=== PATIENT | male | born 1965 | race Caucasian/White ===

== ENCOUNTER 2016-04-22 19:31 | Emergency (ER) | payer MEDICAID ==
[~2016-04-22] VITALS: Ht 190.5 cm; Wt 86.2 kg
[2016-04-22 19:40] VITALS: BP 152/91; PULSE 80; RESP 16; TEMP 98.2; O2SAT 97
--- NOTE | 2016-04-22 19:40 | NUR ---
Patient to ER bed 3 for evaluation. Side rails up. Report given to MARCE Mendoza.
--- NOTE | 2016-04-22 19:45 | NUR ---
Dr Banuelos at bedside examining patient
--- NOTE | 2016-04-22 19:45 | NUR ---
Pt brought by self, A&Ox4, pt c/o pain and discomfort on R groin area, denies urinary symptoms, skin pink and warm,cap refill <3, VSS.
[2016-04-22] MEDS ORDERED: IBUPROFEN 800 MG TABLET PO ONE (20:15)
[2016-04-22 20:58] LABS: BILIRUBIN,URINE 1+ (NEGATIVE); BLOOD, URINE NEGATIVE (NEGATIVE); CLARITY/URINE CLEAR (CLEAR); COLOR,URINE AMBER (YELLOW); GLUCOSE,URINE NEGATIVE (NEGATIVE); KETONES,URINE NEGATIVE (NEGATIVE); LEUKOCYTE ESTERASE ,URINE NEGATIVE (NEGATIVE); NITRITE, URINE NEGATIVE (NEGATIVE); PROTEIN URINE TRACE (NEGATIVE)
[2016-04-22 21:18] LABS: RBC,URINE NONE SEEN /HPF (0-3); WBC,URINE 0-3 /HPF (0-3)
[2016-04-22 21:19] LABS: BACTERIA,URINE FEW /HPF (None Seen); MUCUS,URINE 3+ /LPF (None Seen)
--- NOTE | 2016-04-22 22:15 | NUR ---
Patient given written and verbal discharge instructions and verbalizes understanding. ER MD discussed with patient the results and treatment provided. Patient in stable condition. ID arm band removed. Rx of Wilson given. Patient educated on pain management and to follow up with PMD. Pain Scale 0/10. Opportunity for questions provided and answered.
[2016-04-22 22:22] VITALS: BP 148/91; PULSE 80; RESP 16; TEMP 98.2; O2SAT 97
== END 2016-04-22 22:22 | disposition home or self-care (01) ==
LOC: SED 19:31
DX: M54.41 Lumbago with sciatica, right side (principal); R03.0 Elevated blood-pressure reading, without diagnosis of hypertension; G43.909 Migraine, unspecified, not intractable, without status migrainosus
CPT/HCPCS: 72192-TC; 81000-TC; 99285

== ENCOUNTER 2016-10-11 12:47 | Emergency (ER) | payer MEDICAID ==
[~2016-10-11] VITALS: Ht 190.5 cm; Wt 86.2 kg
[2016-10-11 12:59] VITALS: BP_SYST 142
[2016-10-11] MEDS ORDERED: KETOROLAC TROMETHAMINE 30 MG VIAL IVP ONE (15:00)
[2016-10-11] MEDS ORDERED: CYCLOBENZAPRINE HCL 10 MG TABLET (FLEXERIL) PO ONE (15:00)
[2016-10-11 16:08] VITALS: BP_SYST 141
== END 2016-10-11 16:08 | disposition home or self-care (01) ==
LOC: SED 12:47
DX: M54.5 Low back pain (principal); F41.9 Anxiety disorder, unspecified; W11.XXXA Fall on and from ladder, initial encounter; Y93.89 Activity, other specified; Y92.89 Other specified places as the place of occurrence of the external cause; Y99.8 Other external cause status
CPT/HCPCS: 72072; 72100; 72220; 96372; 99284; J1885

== ENCOUNTER 2017-04-29 15:07 | Emergency (ER) | payer MEDICAID ==
[~2017-04-29] VITALS: Ht 190.5 cm; Wt 81.6 kg
[2017-04-29 15:07] VITALS: BP_SYST 138
--- NOTE | 2017-04-29 15:07 | NUR ---
BROUGHT BACK TO BED #4 AND TRIAGED. REPORT GIVEN TO DILMA
--- NOTE | 2017-04-29 15:08 | NUR ---
Pt states that he ran out of medical marijuana and can't afford a refill. Pt requests medication to help relieve his anxiety.
--- NOTE | 2017-04-29 15:08 | NUR ---
REPORT CHANGED TO ROSALIO
--- NOTE | 2017-04-29 15:10 | NUR ---
ER MARIA INES Avalos examining patient.
[2017-04-29 15:25] VITALS: BP_SYST 146
--- NOTE | 2017-04-29 15:25 | NUR ---
Patient given written and verbal discharge instructions and verbalizes understanding. ER MD discussed with patient the results and treatment provided. Patient in stable condition. ID arm band removed. Rx of Lorazepam given. Patient educated on pain management and to follow up with PMD. Pain Scale 0/10. Opportunity for questions provided and answered. Medication side effect fact sheet provided.
== END 2017-04-29 15:25 | disposition home or self-care (01) ==
LOC: SED 15:07
DX: F41.9 Anxiety disorder, unspecified (principal); R03.0 Elevated blood-pressure reading, without diagnosis of hypertension; Z76.0 Encounter for issue of repeat prescription
CPT/HCPCS: 99283

== ENCOUNTER 2017-09-07 09:22 | Emergency (ER) | payer MEDICAID, OTHER ==
[~2017-09-07] VITALS: Ht 190.5 cm; Wt 86.2 kg
[2017-09-07 09:22] VITALS: BP_SYST 151
[2017-09-07] MEDS ORDERED: KETOROLAC TROMETHAMINE 30 MG VIAL IM ONE (10:00)
[2017-09-07 10:58] VITALS: BP_SYST 142
== END 2017-09-07 10:58 | disposition home or self-care (01) ==
LOC: SED 09:22
DX: M16.12 Unilateral primary osteoarthritis, left hip (principal); F41.9 Anxiety disorder, unspecified
CPT/HCPCS: 73521; 96372; 99284; J1885

== ENCOUNTER 2017-11-08 13:13 | Inpatient (IN) | payer MEDICAID ==
[~2017-11-08] VITALS: Ht 190.5 cm; Wt 86.2 kg
[2017-11-08 13:13] VITALS: BP_SYST 143
[2017-11-08] MEDS ORDERED: ASPIRIN 81 MG TAB.CHEW PO ONE (13:45)
[2017-11-08] MEDS ORDERED: NITROGLYCERIN 1 INCH (GM) OINT. TP ONE (13:45)
[2017-11-08 14:09] LABS: BASOPHILS # (AUTO) 0.1 K/uL (0.0-0.2); BASOPHILS % (AUTO) 0.9 % (0.0-2.0); EOSINOPHILS # (AUTO) 0.2 K/uL (0.0-0.4); EOSINOPHILS % (AUTO) 2.3 % (0.0-4.0); HEMATOCRIT 40.4 % (36-54); HEMOGLOBIN 13.5 g/dL (14.0-18.0); LYMPHOCYTES # (AUTO) 1.3 K/uL (1.0-5.5); LYMPHOCYTES % (AUTO) 18.3 % (20.5-51.5); MEAN CORPUSCULAR HEMOGLOBIN 31 pg (27-31); MEAN CORPUSCULAR HGB CONC 34 % (32-36); MEAN CORPUSCULAR VOLUME 93 fL (79.0-98.0); MONOCYTES # (AUTO) 0.4 K/uL (0.0-1.0); MONOCYTES % (AUTO) 6.1 % (1.7-9.3); NEUTROPHILS # (AUTO) 4.9 K/uL (1.8-7.7); NEUTROPHILS % (AUTO) 72.4 % (40.0-70.0); PLATELET COUNT (AUTO) 267 K/uL (130-430); RED BLOOD CELL COUNT(AUTO) 4.32 MIL/uL (4.2-6.2); RED CELL DISTRIBUTION WIDTH 12.2 % (9.0-15.0); WHITE BLOOD COUNT (AUTO) 6.9 K/uL (4.8-10.8)
[2017-11-08 14:10] LABS: BILIRUBIN,URINE NEGATIVE (NEGATIVE); BLOOD, URINE NEGATIVE (NEGATIVE); CLARITY/URINE CLEAR (CLEAR); COLOR,URINE YELLOW (YELLOW); GLUCOSE,URINE NEGATIVE (NEGATIVE); KETONES,URINE NEGATIVE (NEGATIVE); LEUKOCYTE ESTERASE ,URINE NEGATIVE (NEGATIVE); NITRITE, URINE NEGATIVE (NEGATIVE); PROTEIN URINE NEGATIVE (NEGATIVE); UROBILINOGEN,URINE 0.2 (0.2-1.0)
[2017-11-08 14:13] LABS: CALCIUM 8.8 mg/dL (8.4-11.0); CREATININE 0.99 mg/dL (0.55-1.30); POTASSIUM 3.8 mmol/L (3.5-5.1)
[2017-11-08 14:15] LABS: INR 0.9 (0.80-1.20); PROTHROMBIN TIME 9.5 SECS (9.5-12.5)
[2017-11-08 14:19] LABS: ALBUMIN 3.4 g/dL (3.4-4.8); TOTAL BILIRUBIN 0.9 mg/dL (0.0-1.0)
[2017-11-08 16:14] VITALS: BP_SYST 139
[2017-11-08] MEDS ORDERED: ACETAMINOPHEN 650 MG/20.3 ML UDC PO PRN (17:15)
[2017-11-08] MEDS ORDERED: ONDANSETRON HCL 4 MG/2 ML VIAL IVP PRN (17:15)
[2017-11-08] MEDS ORDERED: MORPHINE 4 MG/ML INJ. SYRINGE IVP PRN (17:15)
[2017-11-08] MEDS: MORPHINE 2 MG/ML INJ. SYRINGE IVP PRN (17:46)
[2017-11-08 20:00] VITALS: BP_SYST 117
[2017-11-08] MEDS ORDERED: ZOLPIDEM TARTRATE 5 MG TABLET PO PRN (22:45)
[2017-11-09] VITALS: BP_SYST 118
[2017-11-09 06:55] LABS: ANION GAP 9 (5-15); CALCIUM 8.5 mg/dL (8.4-11.0); CHLORIDE 107 mmol/L (98-107); CREATININE 1.01 mg/dL (0.55-1.30); GLUCOSE 83 mg/dL (70-99); POTASSIUM 3.9 mmol/L (3.5-5.1); SODIUM SERUM 142 mmol/L (136-145); UREA NITROGEN, BLOOD 17 mg/dL (8-21)
[2017-11-09 07:09] LABS: ALANINE AMINOTRANSFERASE 22 U/L (12-78); ASPARTATE AMINOTRANSFERASE 19 U/L (10-37); LIPASE 164 U/L (73-393); THYROID STIMULATING HORMONE 2.44 uIu/mL (0.36-3.74)
[2017-11-09 07:15] LABS: GFR AFRICAN AMERICAN 99 mL/min (>90)
[2017-11-09 07:34] LABS: BASOPHILS # (AUTO) 0.1 K/uL (0.0-0.2); HEMATOCRIT 40.4 % (36-54); HEMOGLOBIN 13.2 g/dL (14.0-18.0); LYMPHOCYTES # (AUTO) 1.3 K/uL (1.0-5.5); MEAN CORPUSCULAR HEMOGLOBIN 31 pg (27-31); MEAN CORPUSCULAR HGB CONC 33 % (32-36); MEAN CORPUSCULAR VOLUME 94 fL (79.0-98.0); MONOCYTES # (AUTO) 0.5 K/uL (0.0-1.0); PLATELET COUNT (AUTO) 239 K/uL (130-430); RED BLOOD CELL COUNT(AUTO) 4.28 MIL/uL (4.2-6.2); RED CELL DISTRIBUTION WIDTH 12.2 % (9.0-15.0); WHITE BLOOD COUNT (AUTO) 6.9 K/uL (4.8-10.8)
[2017-11-09] MEDS: MORPHINE 2 MG/ML INJ. SYRINGE IVP PRN (07:35)
[2017-11-09 07:50] LABS: BASOPHILS % (AUTO) 0.8 % (0.0-2.0); EOSINOPHILS # (AUTO) 0.2 K/uL (0.0-0.4); EOSINOPHILS % (AUTO) 2.5 % (0.0-4.0); LYMPHOCYTES % (AUTO) 19.1 % (20.5-51.5); MONOCYTES % (AUTO) 7.5 % (1.7-9.3); NEUTROPHILS # (AUTO) 4.8 K/uL (1.8-7.7); NEUTROPHILS % (AUTO) 70.1 % (40.0-70.0)
[2017-11-09 08:00] VITALS: BP_SYST 135
[2017-11-09] MEDS ORDERED: IOHEXOL 350 mgI/mL, 150 ML INFUS..BTL IV ONE (08:25)
[2017-11-09] MEDS ORDERED: ASPIRIN 81 MG TABLET(ECOTRIN) PO SCH (09:00)
[2017-11-09 09:39] LABS: CHOLESTEROL 197 mg/dL (<200); HDL CHOLESTEROL 42 mg/dL (>45); LDL CHOLESTEROL 154 mg/dL (<100); TRIGLYCERIDES 67 mg/dL (30-150)
[2017-11-09 12:37] VITALS: BP_SYST 144
[2017-11-09 14:52] VITALS: BP_SYST 144
== END 2017-11-09 15:10 | disposition home or self-care (01) | DRG 203 ==
LOC: SED 13:13 → STU 15:47
PROVIDERS: ADMIT Internal Medicine; ATTEND Internal Medicine
DX: R07.89 Other chest pain (principal); D18.03 Hemangioma of intra-abdominal structures; E78.5 Hyperlipidemia, unspecified; I45.10 Unspecified right bundle-branch block; Z87.891 Personal history of nicotine dependence
CPT/HCPCS: 36415; 71045; 71275; 80053; 80061; 81003; 83690-TC; 83735-TC; 83880; 84443-TC; 84484; 85025; 85610-TC; 93005; 93306; 99285; J2270; J2405; Q9967

== ENCOUNTER 2017-12-12 17:44 | Emergency (ER) | payer MEDICAID ==
[~2017-12-12] VITALS: Ht 190.5 cm; Wt 90.7 kg
[2017-12-12 18:00] VITALS: BP_SYST 155
--- NOTE | 2017-12-12 20:10 | NUR ---
Patient to ER bed 8 for evaluation.
--- NOTE | 2017-12-12 20:15 | NUR ---
Patient to ER via triage for evaluation of abdominal pain, vomiting and headache. Patient is awake, alert and oriented in no acute distress, vital signs stable, respirations even and unlabored, skin warm and dry to touch. Skin warm and dry to touch. Awaiting evaluation by ER MD, will continue to observe and assess.
--- NOTE | 2017-12-12 20:25 | NUR ---
ER at bedside examining patient.
[2017-12-12] MEDS ORDERED: NACL 0.9% 1,000 ML IV ONE (20:45)
--- NOTE | 2017-12-12 20:55 | NUR ---
Patient to x-ray department for films in stable condition via wheelchair.
[2017-12-12 20:58] LABS: BASOPHILS # (AUTO) 0.1 K/uL (0.0-0.2); BASOPHILS % (AUTO) 1.5 % (0.0-2.0); EOSINOPHILS # (AUTO) 0.4 K/uL (0.0-0.4); EOSINOPHILS % (AUTO) 5.2 % (0.0-4.0); HEMATOCRIT 39.9 % (36-54); HEMOGLOBIN 13.2 g/dL (14.0-18.0); LYMPHOCYTES # (AUTO) 1.7 K/uL (1.0-5.5); LYMPHOCYTES % (AUTO) 20.2 % (20.5-51.5); MEAN CORPUSCULAR HEMOGLOBIN 31 pg (27-31); MEAN CORPUSCULAR HGB CONC 33 % (32-36); MEAN CORPUSCULAR VOLUME 93 fL (79.0-98.0); MONOCYTES # (AUTO) 0.7 K/uL (0.0-1.0); MONOCYTES % (AUTO) 8.2 % (1.7-9.3); NEUTROPHILS # (AUTO) 5.7 K/uL (1.8-7.7); NEUTROPHILS % (AUTO) 64.9 % (40.0-70.0); PLATELET COUNT (AUTO) 244 K/uL (130-430); RED BLOOD CELL COUNT(AUTO) 4.29 MIL/uL (4.2-6.2); WHITE BLOOD COUNT (AUTO) 8.6 K/uL (4.8-10.8)
--- NOTE | 2017-12-12 21:05 | NUR ---
Patient returned from x-ray in stable condition via wheelchair.
[2017-12-12 21:17] LABS: ANION GAP 6 (5-15); CALCIUM 8.8 mg/dL (8.4-11.0); CHLORIDE 107 mmol/L (98-107); CREATININE 1.13 mg/dL (0.55-1.30); GLUCOSE 85 mg/dL (70-99); POTASSIUM 4.2 mmol/L (3.5-5.1); SODIUM SERUM 143 mmol/L (136-145); UREA NITROGEN, BLOOD 14 mg/dL (8-21)
[2017-12-12 21:23] LABS: ALANINE AMINOTRANSFERASE 19 U/L (12-78); ALBUMIN 3.4 g/dL (3.4-4.8); ASPARTATE AMINOTRANSFERASE 19 U/L (10-37); TOTAL BILIRUBIN 0.3 mg/dL (0.0-1.0)
[2017-12-12 21:24] LABS: ALCOHOL, BLOOD < 3 mg/dL (<10); GFR AFRICAN AMERICAN 87 mL/min (>90)
[2017-12-12 21:25] LABS: ACETAMINOPHEN < 1 ug/mL (1-30)
[2017-12-12 21:37] LABS: BARBITURATE, URINE NEGATIVE (NEG <=200); BENZODIAZEPINE, URINE NEGATIVE (NEG <=150); CANNABINOID, URINE POSITIVE (NEG <=50); COCAINE, URINE NEGATIVE (NEG <=150); METHAMPHETAMINES SCREEN,URINE NEGATIVE (NEG <=500); OPIATE, URINE NEGATIVE (NEG <=100); PHENCYCLIDINE SCREEN,URINE NEGATIVE (NEG <=25); UR TRICYCLIC ANTIDEPRESSANTS NEGATIVE (NEG <=300); URINE AMPHETAMINE NEGATIVE (NEG <=500); URINE METHADONE NEGATIVE (NEG <=200); URINE OXYCODONE SCREEN NEGATIVE (NEG <=100); URINE PROPOXYPHENE SCREEN NEGATIVE (NEG <=300)
--- NOTE | 2017-12-12 22:00 | NUR ---
Patient resting quietly in no acute distress, IV fluids infusing without difficulty, no redness or swelling noted at site. Awaiting dispo.
--- NOTE | 2017-12-12 22:25 | NUR ---
Patient given written and verbal discharge instructions and verbalizes understanding. ER MD discussed with patient the results and treatment provided. Patient in stable condition. ID arm band removed. IV catheter removed intact and dressing applied, no active bleeding. Rx of Tramadol given. Patient educated on pain management and to follow up with PMD. Pain Scale 0/10 . Opportunity for questions provided and answered. Medication side effect fact sheet provided.
[2017-12-12 22:28] VITALS: BP_SYST 138
== END 2017-12-12 20:10 | disposition home or self-care (01) ==
LOC: SED 17:44
DX: R10.84 Generalized abdominal pain (principal); F41.9 Anxiety disorder, unspecified; R03.0 Elevated blood-pressure reading, without diagnosis of hypertension
CPT/HCPCS: 36415; 71045; 74021; 80053; 80307; 84484; 85025; 96360; 99285; G0480; G0481; G0482; J7030

== ENCOUNTER 2018-10-24 07:17 | Emergency (ER) | payer BC, MEDICAID ==
[~2018-10-24] VITALS: Ht 190.5 cm; Wt 90.7 kg
[2018-10-24 07:17] VITALS: BP_SYST 152
[2018-10-24 08:06] LABS: BASOPHILS % (AUTO) 0.7 % (0.0-2.0); EOSINOPHILS # (AUTO) 0.3 K/uL (0.0-0.4); EOSINOPHILS % (AUTO) 4.1 % (0.0-4.0); HEMATOCRIT 41.7 % (36-54); HEMOGLOBIN 14.1 g/dL (14.0-18.0); LYMPHOCYTES # (AUTO) 1.2 K/uL (1.0-5.5); LYMPHOCYTES % (AUTO) 20.1 % (20.5-51.5); MEAN CORPUSCULAR HEMOGLOBIN 32 pg (27-31); MEAN CORPUSCULAR HGB CONC 34 % (32-36); MEAN CORPUSCULAR VOLUME 94 fL (79.0-98.0); MONOCYTES # (AUTO) 0.6 K/uL (0.0-1.0); MONOCYTES % (AUTO) 9.7 % (1.7-9.3); NEUTROPHILS # (AUTO) 4.1 K/uL (1.8-7.7); NEUTROPHILS % (AUTO) 65.4 % (40.0-70.0); PLATELET COUNT (AUTO) 215 K/uL (130-430); RED BLOOD CELL COUNT(AUTO) 4.41 MIL/uL (4.2-6.2); RED CELL DISTRIBUTION WIDTH 13.5 % (9.0-15.0); WHITE BLOOD COUNT (AUTO) 6.2 K/uL (4.8-10.8)
[2018-10-24 08:10] LABS: CALCIUM 8.1 mg/dL (8.4-11.0); CREATININE 1.09 mg/dL (0.55-1.30); POTASSIUM 3.9 mmol/L (3.5-5.1)
[2018-10-24 08:16] LABS: ALBUMIN 3.2 g/dL (3.4-4.8); TOTAL BILIRUBIN 0.5 mg/dL (0.0-1.0)
[2018-10-24 09:51] VITALS: BP_SYST 142
== END 2018-10-24 09:52 | disposition home or self-care (01) ==
LOC: SED 07:17
DX: M54.12 Radiculopathy, cervical region (principal); F41.9 Anxiety disorder, unspecified; R03.0 Elevated blood-pressure reading, without diagnosis of hypertension
CPT/HCPCS: 36415; 70450-TC; 71045; 72125-TC; 80053; 82550-TC; 83605; 83880; 84484; 85025; 99284

== ENCOUNTER 2020-04-18 14:24 | Emergency (ER) | payer BC, MEDICAID ==
[~2020-04-18] VITALS: Ht 190.5 cm; Wt 86.2 kg
[2020-04-18 14:29] VITALS: BP_SYST 163
[2020-04-18 15:11] LABS: BASOPHILS % (AUTO) 0.4 % (0.0-2.0); HEMATOCRIT 42.7 % (36-54); HEMOGLOBIN 14.5 g/dL (14.0-18.0); LYMPHOCYTES # (AUTO) 0.9 K/uL (1.0-5.5); LYMPHOCYTES % (AUTO) 7.8 % (20.5-51.5); MEAN CORPUSCULAR HEMOGLOBIN 32 pg (27-31); MEAN CORPUSCULAR HGB CONC 34 % (32-36); MEAN CORPUSCULAR VOLUME 93 fL (79.0-98.0); MONOCYTES # (AUTO) 0.5 K/uL (0.0-1.0); MONOCYTES % (AUTO) 4.4 % (1.7-9.3); NEUTROPHILS # (AUTO) 10.3 K/uL (1.8-7.7); NEUTROPHILS % (AUTO) 87.4 % (40.0-70.0); PLATELET COUNT (AUTO) 270 K/uL (130-430); RED BLOOD CELL COUNT(AUTO) 4.62 MIL/uL (4.2-6.2); RED CELL DISTRIBUTION WIDTH 12.6 % (9.0-15.0); WHITE BLOOD COUNT (AUTO) 11.8 K/uL (4.8-10.8)
[2020-04-18 15:12] LABS: ANION GAP 12 (5-15); CALCIUM 8.6 mg/dL (8.4-11.0); CHLORIDE 98 mmol/L (98-107); CREATININE 0.97 mg/dL (0.55-1.30); GLUCOSE 125 mg/dL (70-99); POTASSIUM 3.6 mmol/L (3.5-5.1); SODIUM SERUM 135 mmol/L (136-145); UREA NITROGEN, BLOOD 12 mg/dL (8-21)
[2020-04-18 15:13] LABS: BILIRUBIN,URINE NEGATIVE (NEGATIVE); BLOOD, URINE NEGATIVE (NEGATIVE); COLOR,URINE YELLOW (YELLOW); GLUCOSE,URINE NEGATIVE (NEGATIVE); KETONES,URINE 2+ (NEGATIVE); LEUKOCYTE ESTERASE ,URINE NEGATIVE (NEGATIVE); NITRITE, URINE NEGATIVE (NEGATIVE); PH,URINE 6.5 (5.0-8.0); PROTEIN URINE TRACE (NEGATIVE)
[2020-04-18 15:14] LABS: GFR AFRICAN AMERICAN 103 mL/min (>90)
[2020-04-18 15:15] LABS: CLARITY/URINE SLIGHTLY HAZY (CLEAR)
[2020-04-18 15:21] LABS: ALANINE AMINOTRANSFERASE 21 U/L (12-78); ALBUMIN 3.8 g/dL (3.4-4.8); ASPARTATE AMINOTRANSFERASE 19 U/L (10-37); LIPASE 136 U/L (73-393); TOTAL BILIRUBIN 0.7 mg/dL (0.0-1.0)
[2020-04-18 15:40] VITALS: BP_SYST 163
[2020-04-18 16:22] LABS: RBC,URINE 0-3 /HPF (0-3)
[2020-04-18 16:23] LABS: BACTERIA,URINE FEW /HPF (None Seen); WBC,URINE NONE SEEN /HPF (0-3)
== END 2020-04-18 15:42 | disposition home or self-care (01) ==
LOC: SED 14:24
DX: R53.83 Other fatigue (principal); F41.9 Anxiety disorder, unspecified; Z20.822 Contact with and (suspected) exposure to COVID-19
CPT/HCPCS: 36415; 71045; 80053; 81000; 83690; 84443; 84484; 85025; 93005; 99285; C9803; U0003

== ENCOUNTER 2021-08-11 12:29 | Emergency (ER) | payer OTHER, MEDICAID ==
[~2021-08-11] VITALS: Ht 190.5 cm; Wt 81.6 kg
[2021-08-11 12:37] VITALS: BP_SYST 142
[2021-08-11] MEDS ORDERED: IBUP-1971 PO (14:08)
[2021-08-11] MEDS ORDERED: HYDR-3917 PO (14:08)
[2021-08-11 14:50] VITALS: BP_SYST 142
== END 2021-08-11 14:45 | disposition home or self-care (01) ==
LOC: SED 12:29
DX: S30.0XXA Contusion of lower back and pelvis, initial encounter (principal); V47.5XXA Car driver injured in collision with fixed or stationary object in traffic accident, initial encounter; Y93.89 Activity, other specified; Y92.89 Other specified places as the place of occurrence of the external cause; Y99.8 Other external cause status
CPT/HCPCS: 72192-TC; 76376; 99284